=== PATIENT | male | born 1985 | race Caucasian/White ===

== ENCOUNTER 2018-05-02 11:00 | Outpatient (RCR) | payer BC, SELFPAY | END 2018-05-02 11:01 | disposition home or self-care (01) | LOC: OT 11:00 | PROVIDERS: Family Provider Family Medicine; Visit Provider Orthopaedic Surgery Adult Reconstructive Orthopaedic Surgery | DX: S62.306A Unspecified fracture of fifth metacarpal bone, right hand, initial encounter for closed fracture (principal) | CPT/HCPCS: 97110; 97140; 97165 ==